=== PATIENT | male | born 1995 | race Caucasian/White ===

== ENCOUNTER 2018-02-15 19:16 | Emergency (ER) | payer BC ==
[2018-02-15] MEDS ORDERED: IBUPROFEN 600 MG TAB PO ONE (20:07)
--- NOTE | 2018-02-15 20:11 | EDPHY ---
H & P Time Seen by Provider: 02/15/18 19:46 HPI/ROS: CHIEF COMPLAINT: Back pain HISTORY OF PRESENT ILLNESS: The patient is a 22-year-old male who presents emergency department with back pain. His pain started on Thursday. Persisted throughout the weekend. He feels it primarily in his left lower back. Today it started wraps around to his left lower quadrant. He has had no dysuria frequency. No gross hematuria. He denies any fever or chills. He went to [facility] and had laboratory studies drawn. I reviewed these studies. His CBC was unremarkable. Chemistry panel was notable for normal renal function. His urine was negative. He was told to come to the emergency department if his symptoms worsen. Because the pain persisted he came to the emergency department. REVIEW OF SYSTEMS: 10 systems were reveiwed and are negative with the exception of the elements mentioned in the history of present illness. Past Medical/Surgical History: Includes hernia repair, ear tubes, left shoulder surgery Smoking Status: Never smoked Physical Exam: Vitals noted GENERAL: Well-appearing, in no acute distress, alert. HEENT: Eyes normal to inspection, normal pharynx, no signs of dehydration. NECK: Normal, supple. RESPIRATORY: Clear to auscultation bilaterally, no rales, rhonchi or wheezing. CVS: Regular rate and rhythm, no rubs, murmurs, or gallops. ABDOMEN: Soft, nontender, nondistended, no organomegaly. Benign. BACK: Normal to inspection, no CVA tenderness. No back tenderness to palpation. SKIN: Normal color, no rash, warm, dry. No pallor. EXTREMITIES: No pedal edema, no calf tenderness, no Homans sign or cords, no joint swelling. NEURO/PSYCH: Alert and oriented, normal mood and affect, normal motor sensory exam. Constitutional: Initial Vital Signs Temperature (C) 37.2 C 02/15/18 19:21 Heart Rate 85 02/15/18 19:21 Respiratory Rate 16 02/15/18 19:21 Blood Pressure 131/83 H 02/15/18 19:21 O2 Sat (%) 96 02/15/18 19:21 O2 Delivery Mode Room Air Allergies/Adverse Reactions: cat dander Allergy (Verified 02/15/18 19:23) Home Medications: Medication Instructions Recorded Cyclobenzaprine [Flexeril] 10 mg PO TID #11 tab 02/15/18 Medical Decision Making ED Course/Re-evaluation: In the emergency department I discussed possible etiologies with the patient. I answered all his questions. I reviewed his laboratory studies from [facility]. The patient had a CT without contrast of his abdomen and pelvis for possible kidney stone. Patient states that he feels this may be secondary to anxiety. He was given ibuprofen 600 mg orally. I rechecked the patient. He was doing well. Abdomen/pelvis CT: Please refer the dictated report by Dr. Blanco. No acute disease noted. I discussed the results with the patient. His abdomen is benign. Patient will be treated with Flexeril and ibuprofen. He will follow up with work. He was given warnings prior to leaving. Differential Diagnosis: My differential includes but is not limited to kidney stone, musculoskeletal strain, disc herniation - Data Points Medications Given: Discontinued Medications Ibuprofen (Motrin) 600 mg PO EDNOW ONE Stop: 02/15/18 20:08 Last Admin: 02/15/18 20:24 Dose: 600 mg Departure - Departure Disposition: Home, Routine, Self-Care Clinical Impression: Back pain Qualifiers: Back pain location: low back pain Chronicity: acute Back pain laterality: left Sciatica presence: without sciatica Qualified Code(s): M54.5 - Low back pain Condition: Good Instructions: Acute Low Back Pain (ED) Additional Instructions: Return with increasing pain, shortness of breath, fever, chills or any other concerns. Referrals: [facility],. [Clinic] - 3-4 days, if not improved Prescriptions: Cyclobenzaprine [Flexeril] 10 mg PO TID #11 tab
[2018-02-15] MEDS ORDERED: CYCLOBENZAPRINE 10MG PREPACK#3 BTL TAKEHOME ONE (20:58)
[2018-02-15 21:13] VITALS: BP 125/87
== END 2018-02-15 21:13 | disposition home or self-care (01) ==
DX: M54.5 Low back pain (principal)